=== PATIENT | male | born 1985 | race Caucasian/White ===

== ENCOUNTER 2017-01-23 07:10 | Outpatient (CLI) | payer MEDICAID ==
[2017-01-23 19:11] LABS: ALBUMIN/GLOBULIN RATIO 1.3 (1.0-2.2); BILIRUBIN,TOTAL 0.6 mg/dL (0.2-1.0); CALCIUM 9.3 mg/dL (8.5-10.3); CREATININE 1.1 mg/dL (0.6-1.2); POTASSIUM 3.7 mmol/L (3.5-5.0); TOTAL PROTEIN 8.1 g/dL (6.7-8.2)
[2017-01-23 19:36] LABS: BASOPHILS % (AUTO) 0.5 %; EOSINOPHILS # (AUTO) 0.3 10^3/uL (0.0-0.7); EOSINOPHILS % (AUTO) 3.7 %; HCT - HEMATOCRIT 45.7 % (42.0-52.0); HGB - HEMOGLOBIN 15.3 g/dL (14.0-18.0); LYMPHOCYTES # (AUTO) 2.5 10^3/uL (1.5-3.5); LYMPHOCYTES % (AUTO) 32.6 %; MEAN CORPUSCULAR HEMOGLOBIN 29.4 pg (27.0-31.0); MEAN CORPUSCULAR HGB CONC 33.4 g/dL (32.0-36.0); MEAN CORPUSCULAR VOLUME 87.9 fL (80.0-94.0); MEAN PLATELET VOLUME 9.4 fL (7.4-11.4); MONOCYTES # (AUTO) 0.5 10^3/uL (0.0-1.0); MONOCYTES % (AUTO) 6.4 %; NEUTROPHILS # (AUTO) 4.4 10^3/uL (1.5-6.6); NEUTROPHILS % (AUTO) 56.8 %; UNCORRECTED WHITE BLOOD COUNT 7.7 x10^3/uL; WHITE BLOOD COUNT 7.7 x10^3/uL (4.8-10.8)
[2017-01-23 19:44] LABS: THYROID STIMULATING HORMONE 2.04 uIU/mL (0.34-5.60)
== END 2017-01-23 07:11 | disposition home or self-care (01) ==
LOC: LAB.WCP 07:10
PROVIDERS: ATTEND Physician Assistant Medical
DX: F32.9 Major depressive disorder, single episode, unspecified (principal)
CPT/HCPCS: 36415; 80053; 81599; 82607; 84443; 85025

== ENCOUNTER 2018-07-05 07:38 | Emergency (ER) | payer MEDICAID ==
[2018-07-05 07:48] VITALS: BP 128/68
--- NOTE | 2018-07-05 08:12 | XRAY Report ---
Reason: Great toe pain and swelling Procedure Date: 07/05/2018 Accession Number: [id number] / [id number] Procedure: XR - Toe(s) RT CPT Code: FULL RESULT: EXAM: RIGHT FOOT RADIOGRAPHY EXAM DATE: 07/05/2018 08:01 AM. CLINICAL HISTORY: Great toe pain and swelling. No trauma. Possible gout. COMPARISON: None. TECHNIQUE: 3 nonweightbearing views. FINDINGS: Bones: Normal. No fractures or bone lesions. Joints: No subluxation or dislocation. There is minimal joint space narrowing and marginal osteophyte formation at the first metatarsophalangeal joint. Soft Tissues: There is mild soft tissue swelling of the great toe. No soft tissue calcification or gas. IMPRESSION: 1. No acute osseous abnormality. 2. 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 3. Mild soft tissue swelling of the great toe. No soft tissue calcification or gas. RADIA
[2018-07-05] MEDS ORDERED: oxyCODONE 5 MG TABLET PO STA ×2 (08:38→09:12)
[2018-07-05] MEDS ORDERED: INDOMETHACIN 25 MG CAPSULE PO STA (08:38)
--- NOTE | 2018-07-05 08:43 | ED Physician Documentation ---
History of Present Illness - Stated complaint Stated Complaint: R FOOT INJ - Chief complaint Chief Complaint: Ext Problem - Additonal information Additional information: hx from pt 32 male insidious onset R foot 1st MCP jt redness and severe pain no injury Review of Systems Constitutional: denies: Fever Musculoskeletal: reports: Joint pain, Pain with weight bearing PD PAST MEDICAL HISTORY - Past Medical History GI: Hemorrhoids - Past Surgical History Past Surgical History: Yes - Present Medications Home Medications: Ambulatory Orders Medication Instructions Recorded Confirmed Allopurinol 100 mg PO DAILY #14 tablet 07/05/18 Indomethacin [Indocin] 25 mg PO TIDWM PRN #30 capsule 07/05/18 oxyCODONE [Roxicodone] 5 mg PO Q6H PRN #8 tablet 07/05/18 - Allergies Allergies/Adverse Reactions: Allergies Allergy/AdvReac Type Severity Reaction Status Date / Time No Known Drug Allergies Allergy Verified 07/05/18 07:47 - Social History Does the pt smoke?: No Smoking Status: Former smoker Does the pt drink ETOH?: No Does the pt have substance abuse?: No - Immunizations Immunizations are current?: Yes PD ED PE NORMAL - Vitals Vital signs reviewed: Yes - Extremities Extremities: Other (foot: redness warmth swelling to 1st MCP jt, no streaking, no open wounds, no tinea, no knee pain, MSV intact) Results - Vitals Vitals: Vital Signs - 24 hr 07/05/18 07:44 Temperature 36.0 C L Heart Rate 99 Respiratory 16 Rate Blood Pressure 128/68 O2 Saturation 100 Oxygen O2 Source Room air - Labs Labs: Laboratory Tests 07/05/18 08:50 Uric Acid 8.1 H - Rads (name of study) toe Radiology: See rad report (STS degen OA no subcut gas etc) PD MEDICAL DECISION MAKING - ED course ED course: hx and exam most suggest gout no open wounds or streaking or fever to suggest infection no trauma Departure - Departure Clinical Impression: Gout Qualifiers: Gout site: toe Gout etiology: unspecified cause Chronicity: acute Laterality: right Qualified Code(s): M10.9 - Gout, unspecified Condition: Good Instructions: ED Arthritis Gout Prescriptions: Allopurinol 100 mg PO DAILY #14 tablet Indomethacin [Indocin] 25 mg PO TIDWM PRN #30 capsule PRN Reason: gout pain oxyCODONE [Roxicodone] 5 mg PO Q6H PRN #8 tablet PRN Reason: Severe Pain Comments: The redness and swelling to the base of the big toe is very suggestive of gout. There are no open wounds or streaks up your leg or fever to suggest an infection. Gout usually improves with a strong anti-inflammatory called indocin. I have also prescribed a stronger pain medication called oxycodone for you to take until the indocin works - oxycodone is a narcotic and can be addictive - please use as little as possible for as short a period of time as possible - also may cause drowsiness so no driving And also a medication called allopurinol to lower your uric acid levels - this is a medication you take snf - I just wrote for two weeks because you will need to follow up with your PMD to recheck labs and see if the dose needs to be adjusted Forms: Activity restrictions
== END 2018-07-05 09:42 | disposition home or self-care (01) ==
LOC: ED 07:38
DX: M10.9 Gout, unspecified (principal); Z87.891 Personal history of nicotine dependence
CPT/HCPCS: 36415; 73660; 84550; 99283; A9270

== ENCOUNTER 2018-12-07 11:45 | Emergency (ER) | payer MEDICAID ==
[2018-12-07 12:40] VITALS: BP 142/88
[2018-12-07] MEDS ORDERED: KETOROLAC 60 MG/2 ML VIAL IM STA (13:44)
[2018-12-07] MEDS ORDERED: DEXAMETHASONE 10 MG/ML VIAL PO STA (13:44)
[2018-12-07] MEDS ORDERED: CHERRY SYRUP 10 ML UDC PO ONE (13:44)
--- NOTE | 2018-12-07 13:49 | ED Physician Documentation ---
PD HPI BACK PAIN - Stated complaint Stated Complaint: BACK PX - Chief complaint Chief Complaint: Back Pain - History obtained from History obtained from: Patient - History of Present Illness Timing - onset: Yesterday Timing - duration: Days (1) Timing - details: Abrupt onset, Still present Location: Upper, Mid Quality: Pain, Spasm, Sharp Associated symptoms: No: Fever, Weakness, Numbness, Incontinent of urine, Unable to urinate, Hematuria, Incontinent of stool Improves with: Rest, Position Worsened by: Movement, Lifting, Twisting Contributing factors: Other (works for [employer]) Similar symptoms before: Has not had sx before Recently seen: Not recently seen - Additional information Additional information: 33-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 He has not had this happen to him previously. He does state that he has been working harder at work recently. He has worked for [employer] for the past 3-4 months. Review of Systems Constitutional: denies: Fever Eyes: denies: Decreased vision Ears: denies: Ear pain Nose: denies: Rhinorrhea / runny nose, Congestion Throat: denies: Sore throat Cardiac: denies: Chest pain / pressure Respiratory: denies: Dyspnea, Cough GI: denies: Abdominal Pain, Nausea, Vomiting : denies: Dysuria, Frequency Skin: denies: Rash Musculoskeletal: reports: Back pain. denies: Neck pain PD PAST MEDICAL HISTORY - Past Medical History GI: Hemorrhoids - Past Surgical History Past Surgical History: Yes - Present Medications Home Medications: Ambulatory Orders Medication Instructions Recorded Confirmed Allopurinol 100 mg PO DAILY #14 tablet 07/05/18 Indomethacin [Indocin] 25 mg PO TIDWM PRN #30 capsule 07/05/18 oxyCODONE [Roxicodone] 5 mg PO Q6H PRN #8 tablet 07/05/18 Cyclobenzaprine [Flexeril] 10 mg PO TID PRN #20 tablet 12/07/18 Hydrocodone/Acetaminophen 1 - 2 each PO Q6H PRN #14 tablet 12/07/18 [Hydrocodon-Acetaminophen 5-325] - Allergies Allergies/Adverse Reactions: Allergies Allergy/AdvReac Type Severity Reaction Status Date / Time No Known Drug Allergies Allergy Verified 07/05/18 07:47 - Social History Does the pt smoke?: No Smoking Status: Former smoker Does the pt drink ETOH?: No Does the pt have substance abuse?: No - Immunizations Immunizations are current?: Yes PD ED PE NORMAL - Vitals Vital signs reviewed: Yes (tachy nad hypertensive ) - General General: Alert and oriented X 3, Well developed/nourished - HEENT HEENT: Atraumatic, PERRL, EOMI, Other (dry mucous membranes) - Neck Neck: Supple, no meningeal sign, No bony TTP - Respiratory Respiratory: No respiratory distress - Back Back: No CVA TTP, No spinal TTP, Other (There is paraspinous muscle tenderness and tenseness at the level of the rhomboids bilaterally ) - Derm Derm: Normal color, Warm and dry - Extremities Extremities: No deformity, No edema - Neuro Neuro: Alert and oriented X 3, 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, No motor deficit, No sensory deficit, Normal speech Eye Opening: Spontaneous Motor: Obeys Commands Verbal: Oriented GCS Score: 15 - Psych Psych: Normal mood, Normal affect Results - Vitals Vitals: Vital Signs - 24 hr 12/07/18 12:37 Temperature 37.4 C Heart Rate 101 H Respiratory 18 Rate Blood Pressure 142/88 H O2 Saturation 100 Oxygen O2 Source Room air PD MEDICAL DECISION MAKING - ED course Complexity details: considered differential, d/w patient ED course: 33-year-old male with significant muscle spasm to the mid thoracic area consistent with the actions he makes pushing and pulling pallets. He is administered dexamethasone 10 mg orally and Toradol 6 mg IM [address] will place him on some hydrocodone and Flexeril and give him a note for work for 2 days. Departure - Departure Disposition: 01 Home, Self Care Clinical Impression: Spasm of thoracic back muscle Condition: Stable Instructions: ED Spasm Back No Trauma Follow-Up: Mildred Ortiz PA-C [Primary Care Provider] - Prescriptions: Cyclobenzaprine [Flexeril] 10 mg PO TID PRN #20 tablet PRN Reason: Spasms Hydrocodone/Acetaminophen [Hydrocodon-Acetaminophen 5-325] 1 - 2 each PO Q6H PRN #14 tablet PRN Reason: pain Forms: Activity restrictions
== END 2018-12-07 13:58 | disposition home or self-care (01) ==
LOC: ED 11:45
DX: M62.830 Muscle spasm of back (principal); M54.6 Pain in thoracic spine; X50.0XXA Overexertion from strenuous movement or load, initial encounter; Y93.89 Activity, other specified; Y92.512 Supermarket, store or market as the place of occurrence of the external cause; Y99.0 Civilian activity done for income or pay; Z87.891 Personal history of nicotine dependence
CPT/HCPCS: 96372; 99283; A9270

== ENCOUNTER 2019-03-06 05:07 | Emergency (ER) | payer MEDICAID ==
[2019-03-06 05:14] VITALS: BP 139/97
[2019-03-06] MEDS ORDERED: LIDOCAINE 1% 2 ML VIAL SUBQ STA (05:35)
--- NOTE | 2019-03-06 05:36 | ED Physician Documentation ---
PD HPI LOWER EXT INJURY - Stated complaint Stated Complaint: L CALF PAIN/WOUND - Chief complaint Chief Complaint: Wound - History obtained from History obtained from: Patient - History of Present Illness PD HPI LOW EXT INJURY LOCATION: Left, Lower leg Type of injury: Other ((?) spider bite) Timing - onset: How many days ago (2) Timing - duration: Days (2) Timing - details: Abrupt onset Improved by: Nothing Associated symptoms: Swelling, Discolored Similar symptoms before: Has not had sx before Recently seen: Not recently seen - Additional information Additional information: This is a 33-year-old man who presents with complaints with what he thought was a pimple on the back of his left leg. He noticed it because it was rubbing on his pants and whenever he would sit down so he squeezed it just a thin line of pus came out. He wondered if it might of been a spider bite. 2 days ago he squeezed it and now is hurting more. He actually had to leave work a little bit early because of the pain. He has not taken anything for the pain. No fever. He is never had anything like this previously. Review of Systems Constitutional: denies: Fever Skin: reports: Lesions (Pimple on the back of his left leg) Endocrine: reports: Other (He is not diabetic) PD PAST MEDICAL HISTORY - Past Medical History Past Medical History: Yes GI: Hemorrhoids - Past Surgical History Past Surgical History: Yes - Present Medications Home Medications: Ambulatory Orders Medication Instructions Recorded Confirmed Ibuprofen [Motrin] 800 mg PO Q8H PRN #30 tablet 03/06/19 Sulfamethox/Trimeth 800/160 1 each PO BID #20 tablet 03/06/19 [Bactrim Ds 800/160] - Allergies Allergies/Adverse Reactions: Allergies Allergy/AdvReac Type Severity Reaction Status Date / Time No Known Drug Allergies Allergy Verified 03/06/19 05:14 - Social History Does the pt smoke?: No Smoking Status: Never smoker Does the pt drink ETOH?: No Does the pt have substance abuse?: No - Immunizations Immunizations are current?: Yes - POLST Patient has POLST: No PD ED PE NORMAL - Vitals Vital signs reviewed: Yes - General General: Alert and oriented X 3, No acute distress, Well developed/nourished, Other (Very pleasant 33-year-old man is not in acute distress.) - HEENT HEENT: Atraumatic Results - Vitals Vitals: Vital Signs - 24 hr 03/06/19 05:10 Temperature 36.7 C Heart Rate 75 Respiratory 16 Rate Blood Pressure 139/97 H O2 Saturation 98 Oxygen O2 Source Room air Procedures - Abscess I&D (location) Lower extremity left Posterior Preparation: Chlorhexadine, Lidocaine 1% Incision: Incised with scalpel. No: Irrigated, Packed, Culture obtained Other: Pt tolerated well, Antibiotic prescribed PD MEDICAL DECISION MAKING - ED course Complexity details: d/w patient ED course: There was a tiny bead of pus that came out with the I&D. A lot of induration. No pain with passive stretching of the gastrocnemius muscle. Patient will be placed on Bactrim DS twice daily for 10 days. He is given Motrin prior to discharge and encouraged to use anti-inflammatories [id number]. He can wash the wound. He should recheck in 48 hours if it is not improving or sooner if it is rapidly worsening, he develops a fever or is vomiting. Departure - Departure Disposition: 01 Home, Self Care Clinical Impression: Cellulitis of leg, left, Abscess of leg, left Condition: Good Instructions: ED Infec Skin Cellulitis Follow-Up: Mildred Ortiz PA-C [Primary Care Provider] - Prescriptions: Ibuprofen [Motrin] 800 mg PO Q8H PRN #30 tablet PRN Reason: PAIN &/OR FEVER Sulfamethox/Trimeth 800/160 [Bactrim Ds 800/160] 1 each PO BID #20 tablet Comments: Keep the wound clean with soap and water. Cover it with a bandage. Take the Bactrim antibiotic twice a day. This can cause a little photosensitivity. Take the Motrin every 8 hours with food for the next 3 to 4 days to help with the inflammation. Return if this is not improving in 48 hours or if it is getting progressively worse, you have a fever or vomiting return sooner.
[2019-03-06] MEDS ORDERED: SULFAMETH/TRIMETH DS 800/160 MG TABLET PO STA (05:55)
[2019-03-06] MEDS ORDERED: IBUPROFEN 600 MG TABLET PO STA (05:55)
== END 2019-03-06 06:19 | disposition home or self-care (01) ==
LOC: ED 05:07
DX: L02.416 Cutaneous abscess of left lower limb (principal); L03.116 Cellulitis of left lower limb
CPT/HCPCS: 10060; 96372; 99283; A9270

== ENCOUNTER 2019-04-03 09:04 | Emergency (ER) | payer MEDICAID ==
--- NOTE | 2019-04-03 09:15 | ED Physician Documentation ---
History of Present Illness - Stated complaint Stated Complaint: RT SIDE PAIN - Chief complaint Chief Complaint: Abd Pain - History obtained from History obtained from: Patient - Additonal information Additional information: Patient is a previously healthy 33-year-old male presenting with right-sided abdominal pain over the past several days. Patient reports right upper quadrant discomfort that radiates towards the back. Patient's back pain is described as soreness. Patient also reports radiation of discomfort towards his right testicle. Patient denies other groin complaints. Patient states he has had difficulty with urination such as incomplete emptying and darkness, but no specific dysuria or hematuria. No significant changes in bowel movements. No nausea, vomiting, or fever. No other improving or worsening factors noted. Review of Systems Constitutional: denies: Fever GI: reports: Abdominal Pain. denies: Nausea, Vomiting, Diarrhea : reports: Unable to Void. denies: Dysuria Musculoskeletal: reports: Back pain PD PAST MEDICAL HISTORY - Past Medical History Past Medical History: No GI: Hemorrhoids - Past Surgical History Past Surgical History: Yes - Present Medications Home Medications: Ambulatory Orders Medication Instructions Recorded Confirmed Ibuprofen [Motrin] 800 mg PO Q8H PRN #30 tablet 03/06/19 Sulfamethox/Trimeth 800/160 1 each PO BID #20 tablet 03/06/19 [Bactrim Ds 800/160] Hydrocodone/Acetaminophen [[place] 1 each PO Q6HR #15 tablet 04/03/19 5-325 Tablet] Ondansetron Odt [Zofran] 4 mg TL Q6H PRN #10 tablet 04/03/19 Tamsulosin HCl [Flomax] 0.4 mg PO DAILY #12 capsule 04/03/19 - Allergies Allergies/Adverse Reactions: Allergies Allergy/AdvReac Type Severity Reaction Status Date / Time No Known Drug Allergies Allergy Verified 04/03/19 09:13 - Social History Does the pt smoke?: No Smoking Status: Never smoker Does the pt drink ETOH?: No Does the pt have substance abuse?: No - Immunizations Immunizations are current?: Yes - POLST Patient has POLST: No PD ED PE NORMAL - Vitals Vital signs reviewed: Yes - General General: Alert and oriented X 3, No acute distress, Well developed/nourished - HEENT HEENT: Atraumatic, Moist mucous membranes - Neck Neck: Supple, no meningeal sign - Cardiac Cardiac: RRR, No murmur - Respiratory Respiratory: No respiratory distress, Clear bilaterally - Abdomen Abdomen: Soft, Non distended. No: Non tender (Extremely mild right upper quadrant tenderness, negative Shultz sign, no rebound or guarding) - Back Back: No CVA TTP - Derm Derm: Normal color, Warm and dry, No rash - Extremities Extremities: No deformity, No tenderness to palpate - Neuro Neuro: Alert and oriented X 3, No motor deficit, No sensory deficit - Psych Psych: Normal mood, Normal affect Results - Vitals Vitals: Vital Signs - 24 hr 04/03/19 09:10 Temperature 37.7 C H Heart Rate 84 Respiratory 20 Rate Blood Pressure 146/93 H O2 Saturation 96 Oxygen O2 Source Room air - Labs Labs: Laboratory Tests 04/03/19 04/03/19 04/03/19 09:35 09:35 09:35 WBC 10.7 RBC 5.28 Hgb 15.0 Hct 44.9 MCV 85.0 MCH 28.4 MCHC 33.4 RDW 13.7 Plt Count 317 MPV 9.8 Neut # (Auto) 7.7 H Lymph # (Auto) 2.0 Edmunds # (Auto) 0.8 Eos # (Auto) 0.1 Baso # (Auto) 0.1 Absolute Nucleated RBC 0.00 Nucleated RBC % 0.0 Sodium 143 Potassium 4.0 Chloride 105 Carbon Dioxide 22 Anion Gap 16.0 H BUN 14 Creatinine 1.2 Estimated GFR (MDRD) 70 L Glucose 104 H Calcium 9.9 Total Bilirubin 0.7 AST 48 H ALT 75 H Alkaline Phosphatase 77 Total Protein 9.1 H Albumin 5.0 Globulin 4.1 Albumin/Globulin Ratio 1.2 Lipase 29 Urine Color YELLOW Urine Clarity CLEAR Urine pH 8.0 H Ur Specific Br[place] 1.010 Urine Protein NEGATIVE Urine Glucose (UA) NEGATIVE Urine Ketones NEGATIVE Urine Occult Blood TRACE-INTA Urine Nitrite NEGATIVE Urine Bilirubin NEGATIVE Urine Urobilinogen 0.2 (NORMAL) Ur Leukocyte Esterase NEGATIVE Ur Microscopic Review NOT INDICATED Urine Culture Comments NOT INDICATED PD MEDICAL DECISION MAKING - ED course Complexity details: reviewed results, re-evaluated patient, considered differential, d/w patient ED course: Most concerning for nephrolithiasis given patient's symptoms and physical exam. Also considering UTI and pyelonephritis. Have lower suspicion for other intra- abdominal pathology including gallbladder disease, pancreatitis, appendicitis, bowel obstruction, diverticulitis, AAA, as well as any pelvic pathology at this time, but considered. Patient received IV fluid, as well as Toradol which helped alleviate symptoms. Screening lab work returned relatively unremarkable. No signs of UTI on urinalysis. However, CT imaging did reveal nonobstructive 3 mm right-sided kidney stone. Advised patient of results and recommendations including use of medications for home, supportive cares, return precautions, and appropriate follow-up. Otherwise, feel that patient is safe to discharge home and passed a stone as an outpatient. Patient voiced understanding and is comfortable with discharge plan. Departure - Departure Disposition: , Self Care Clinical Impression: Kidney stone on right side Condition: Good Instructions: ED Stone Renal W Colic Follow-Up: Mildred Ortiz PA-C [Primary Care Provider] - Within 3 Days Prescriptions: Hydrocodone/Acetaminophen [[place] 5-325 Tablet] 1 each PO Q6HR #15 tablet Ondansetron Odt [Zofran] 4 mg TL Q6H PRN #10 tablet PRN Reason: Nausea / Vomiting Tamsulosin HCl [Flomax] 0.4 mg PO DAILY #12 capsule Comments: Please use [place] as prescribed for pain control, Zofran as prescribed for nausea control, and Flomax as prescribed to help pass stone. If using [place]iss[place] regularly, recommend use of stool softener or laxative to avoid constipation. If not requiring Florissant, may use ibuprofen or Tylenol. Follow-up with primary care physician in next 2 to 3 days and return to ED sooner if experience worsening symptoms or have other concerns.
[2019-04-03] MEDS ORDERED: KETOROLAC 30 MG/ML VIAL IVP STA (09:23)
[2019-04-03] MEDS ORDERED: SODIUM CHLORIDE 0.9% 1,000 ML IV ONE (09:23)
[2019-04-03 09:40] LABS: BASOPHILS # (AUTO) 0.1 10^3/uL (0.0-0.1); BASOPHILS % (AUTO) 0.6 %; EOSINOPHILS # (AUTO) 0.1 10^3/uL (0.0-0.7); EOSINOPHILS % (AUTO) 0.9 %; LYMPHOCYTES % (AUTO) 18.9 %; MEAN CORPUSCULAR HEMOGLOBIN 28.4 pg (27.0-31.0); MEAN CORPUSCULAR HGB CONC 33.4 g/dL (32.0-36.0); MEAN PLATELET VOLUME 9.8 fL (7.4-11.4); MONOCYTES # (AUTO) 0.8 10^3/uL (0.0-1.0); NEUTROPHILS # (AUTO) 7.7 10^3/uL (1.5-6.6); NEUTROPHILS % (AUTO) 72.2 %; PLT - PLATELET COUNT 317 10^3/uL (130-450); RED BLOOD COUNT 5.28 10^6/uL (4.70-6.10); RED CELL DISTRIBUTION WIDTH 13.7 % (12.0-15.0); WHITE BLOOD COUNT 10.7 x10^3/uL (4.8-10.8)
[2019-04-03 09:48] LABS: BILIRUBIN,URINE NEGATIVE (NEGATIVE); GLUCOSE, URINE (UA) NEGATIVE (NEGATIVE); KETONES,URINE (UA) NEGATIVE (NEGATIVE); LEUKOCYTE ESTERASE, URINE NEGATIVE (NEGATIVE); NITRITE,URINE NEGATIVE (NEGATIVE); OCCULT BLOOD,URINE TRACE-INTA (NEGATIVE); PROTEIN,URINE NEGATIVE (NEGATIVE); UROBILINOGEN,URINE 0.2 (NORMAL) E.U./dL (NORMAL)
[2019-04-03 09:50] LABS: CLARITY,URINE CLEAR (CLEAR)
[2019-04-03 09:57] LABS: ALBUMIN/GLOBULIN RATIO 1.2 (1.0-2.2); BILIRUBIN,TOTAL 0.7 mg/dL (0.2-1.0); CALCIUM 9.9 mg/dL (8.5-10.3); CREATININE 1.2 mg/dL (0.6-1.2); TOTAL PROTEIN 9.1 g/dL (6.7-8.2)
--- NOTE | 2019-04-03 10:10 | CT Report ---
Reason: Right flank pain, concerning for stone Procedure Date: 04/03/2019 Accession Number: [id number] / [id number] Procedure: CT - Abdomen/Pelvis WO CPT Code: FULL RESULT: EXAM: CT ABDOMEN AND PELVIS (CT KUB) EXAM DATE: 04/03/2019 09:48 AM. CLINICAL HISTORY: Right flank pain, concerning for stone. COMPARISONS: None. TECHNIQUE: Routine axial helical CT imaging was performed through the abdomen and pelvis without IV contrast. Reconstructions: Coronal and sagittal. In accordance with CT protocol optimization, one or more of the following dose reduction techniques were utilized for this exam: automated exposure control, adjustment of mA and/or KV based on patient size, or use of iterative reconstructive technique. FINDINGS: Lung Bases: Unremarkable. Right Kidney/Ureter: There is moderate right hydronephrosis, mild hydroureter, and mild perinephric fat stranding. There is a 3 mm stone at the right ureterovesical junction (series 3 image 87). Left Kidney/Ureter: No stones, hydronephrosis, or hydroureter. No perinephric fat stranding. Other Solid Organs: Noncontrast images of the solid organs are grossly unremarkable. Gallbladder/Bile Ducts: Unremarkable. Peritoneal Cavity: No free fluid, free air or ginna adenopathy. Bowel is grossly unremarkable. The appendix is well-visualized and normal. Pelvic Organs: As noted above, there is a 3 mm stone at the right ureterovesical junction. The bladder is decompressed. No definite bladder wall thickening or adjacent fat stranding. Noncontrast images of the visualized pelvic organs are unremarkable. Vasculature: Unremarkable. Other: None. IMPRESSION: 1. There is moderate right hydronephrosis, mild hydroureter, and mild perinephric fat stranding. There is a 3 mm stone at the right ureterovesical junction. 2. No left urinary tract stones or obstruction. 3. Otherwise unremarkable noncontrast CT of the abdomen and pelvis. The appendix is normal. RADIA
[2019-04-03 10:54] VITALS: BP 139/84
== END 2019-04-03 10:55 | disposition home or self-care (01) ==
LOC: ED 09:04
DX: N13.2 Hydronephrosis with renal and ureteral calculous obstruction (principal)
CPT/HCPCS: 36415; 74176; 80053; 81001; 81003; 83690; 85025; 87086; 96361; 96374; 99284

== ENCOUNTER 2020-01-11 21:09 | Emergency (ER) | payer MEDICAID ==
[2020-01-11 21:22] VITALS: BP 160/85
[2020-01-11] MEDS ORDERED: TETANUS/DIPHTHERIA/PERTUSSIS 0.5 ML SYRINGE IM ONE (21:29)
--- NOTE | 2020-01-11 21:32 | ED Physician Documentation ---
PD HPI WOUND RECHECK - Stated complaint Stated Complaint: Burn, wound - Chief complaint Chief Complaint: Wound - Histroy obtained from History obtained from: Patient (34-year-old gentleman has a pustule on the right lower quadrant abdominal wall. Also has a burn on the tips of the first and second right fingers from working at home today. Tetanus is unknown.) Review of Systems Constitutional: reports: Reviewed and negative Throat: reports: Reviewed and negative PD PAST MEDICAL HISTORY - Past Medical History GI: Hemorrhoids Psych: Anxiety - Past Surgical History Past Surgical History: Yes - Present Medications Home Medications: Ambulatory Orders Medication Instructions Recorded Confirmed Ibuprofen [Motrin] 800 mg PO Q8H PRN #30 tablet 03/06/19 Sulfamethox/Trimeth 800/160 1 each PO BID #20 tablet 03/06/19 [Bactrim Ds 800/160] Hydrocodone/Acetaminophen [[place] 1 each PO Q6HR #15 tablet 04/03/19 5-325 Tablet] Ondansetron Odt [Zofran] 4 mg TL Q6H PRN #10 tablet 04/03/19 Tamsulosin HCl [Flomax] 0.4 mg PO DAILY #12 capsule 04/03/19 Mupirocin 1 gm TP TID #2 [email or web address] 01/11/20 - Allergies Allergies/Adverse Reactions: Allergies Allergy/AdvReac Type Severity Reaction Status Date / Time No Known Drug Allergies Allergy Verified 01/11/20 21:18 - Social History Does the pt smoke?: No Smoking Status: Never smoker Does the pt drink ETOH?: No Does the pt have substance abuse?: No - Immunizations Immunizations are current?: Yes - POLST Patient has POLST: No PD ED PE NORMAL - Vitals Vital signs reviewed: Yes - General General: Alert and oriented X 3, No acute distress - Derm Derm: Other (There is a small pustule in the right lower quadrant abdominal wall) - Extremities Extremities: Other (Two 1 cm rey on the tips of the first and second fingers of the right hand. He also has extensive old scarring on the index finger of the right hand from a prior burn.) - Neuro Neuro: Alert and oriented X 3, Normal speech Results - Vitals Vitals: Vital Signs - 24 hr 01/11/20 21:18 Temperature 37.2 C Heart Rate 117 H Respiratory 14 Rate Blood Pressure 160/85 H O2 Saturation 93 Oxygen O2 Source Room air Procedures - Abscess I&D (location) Right lower quadrant abdominal wall Preparation: Alcohol Incision: Needle aspiration, Purulent drainage, Culture obtained Other: Pt tolerated well, Dressing applied Departure - Departure Disposition: 01 Home, Self Care Clinical Impression: Skin pustule Burn of finger Qualifiers: Encounter type: initial encounter Laterality: right Burn degree: partial thickness (2nd degree) Qualified Code(s): T23.221A - Burn of second degree of single right finger (nail) except thumb, initial encounter Condition: Good Record reviewed to determine appropriate education?: Yes Instructions: ED Burn D 2nd Prescriptions: Mupirocin 1 gm TP TID #2 [email or web address] Comments: For the rey you can just keep them covered with a Band-Aid. Return if the redness around the pustule gets worse. We are performing a wound culture, the results should be done in 48-72 hours. If antibiotic change is necessary we will call you. Return if worse in the meantime, especially if you develop increased pain, fevers, cannot keep down the medication. Otherwise follow-up with your physician in approximately 2-3 days.
== END 2020-01-11 21:40 | disposition home or self-care (01) ==
LOC: ED 21:09
DX: L08.9 Local infection of the skin and subcutaneous tissue, unspecified (principal); T23.221A Burn of second degree of single right finger (nail) except thumb, initial encounter; T23.011A Burn of unspecified degree of right thumb (nail), initial encounter; X58.XXXA Exposure to other specified factors, initial encounter; Y92.009 Unspecified place in unspecified non-institutional (private) residence as the place of occurrence of the external cause; Z23 Encounter for immunization
CPT/HCPCS: 10060; 10160; 87070; 87205; 90471

== ENCOUNTER 2020-04-07 22:11 | Outpatient (CLI) | payer MEDICAID | END 2020-04-07 22:12 | disposition EMS.NT | LOC: EMS 22:11 | PROVIDERS: ATTEND Surgery | DX: R44.3 Hallucinations, unspecified (principal) ==

== ENCOUNTER 2020-08-03 10:54 | Emergency (ER) | payer MEDICAID ==
[2020-08-03 11:14] VITALS: BP 118/67
== END 2020-08-03 12:04 | disposition left against medical advice (07) ==
LOC: ED 10:54
DX: Z53.21 Procedure and treatment not carried out due to patient leaving prior to being seen by health care provider (principal)

== ENCOUNTER 2020-11-19 08:01 | Outpatient (CLI) | payer MEDICAID | END 2020-11-19 08:02 | disposition EMS.NT | LOC: EMS 08:01 | DX: R41.82 Altered mental status, unspecified (principal) ==

== ENCOUNTER 2020-11-29 13:44 | Emergency (ER) | payer MEDICAID ==
--- NOTE | 2020-11-29 14:18 | ED Physician Documentation ---
History of Present Illness - Stated complaint Stated Complaint: MHE - Chief complaint Chief Complaint: MHE - Additonal information Additional information: 35-year-old male brought into the emergency department by Della Haro with an AMNA hold. He had been found wandering around a neighborhood hallucinating looking for Doyle Lay and Bess Leyva. He also was attempting to kick in the door of a home where a 13-year-old boy resided. Patient states to this provider that he was only looking for homes and did not know the correct address of where his friends were at. He states that he takes Prozac 3 times a day. He would like a refill of this but does not feel that he is at risk to harm himself or anyone else. He repeatedly declines our testing or evaluation and has attempted to leave the emergency department. I did discuss with him that because this is a involuntary lawn for cement hold that he is not able to leave the emergency department. Review of Systems Constitutional: denies: Fever, Chills Eyes: reports: Reviewed and negative Ears: reports: Reviewed and negative Nose: reports: Reviewed and negative Throat: reports: Reviewed and negative Cardiac: reports: Reviewed and negative Respiratory: reports: Reviewed and negative GI: reports: Reviewed and negative : reports: Reviewed and negative Skin: reports: Reviewed and negative Musculoskeletal: reports: Reviewed and negative Neurologic: reports: Reviewed and negative Psychiatric: reports: Hallucinations, Delusions Endocrine: reports: Reviewed and negative Immunocompromised: reports: Reviewed and negative PD PAST MEDICAL HISTORY - Past Medical History Cardiovascular: None Respiratory: None Neuro: None Endocrine/Autoimmune: None GI: Hemorrhoids : None HEENT: None Psych: Anxiety Musculoskeletal: None Derm: None - Past Surgical History Past Surgical History: Yes - Present Medications Home Medications: Ambulatory Orders Medication Instructions Recorded Confirmed No Known Home Medications 11/29/20 11/29/20 - Allergies Allergies/Adverse Reactions: Allergies Allergy/AdvReac Type Severity Reaction Status Date / Time No Known Drug Allergies Allergy Verified 11/29/20 13:45 - Social History Does the pt smoke?: No Smoking Status: Never smoker Does the pt drink ETOH?: No Does the pt have substance abuse?: No - Immunizations Immunizations are current?: Yes - POLST Patient has POLST: No PD ED PE EXPANDED - General General: Alert, No acute distress, Well developed/nourished - Cardiac Cardiac: Radial strong equal, Pedal strong equal, Cap refill < 2 sec. No: Murmur Present - Respiratory Respiratory: Clear to ausultation elvia. No: Distress, Labored - Abdomen Abdomen: Normal Bowel sounds. No: Tender to palpation - Derm Derm: Normal color, Warm and dry. No: Rash - GCS Eye Opening: Spontaneous Motor: Obeys Commands Verbal: Oriented Total: 15 - Psych Psych: Pressured speech, Flight of ideas. No: Suicidal, Homicidal Results - Vitals Vitals: Vital Signs - 24 hr 11/29/20 11/29/20 11/29/20 13:46 14:24 14:36 Temperature 37.1 C Heart Rate 112 H 70 79 Respiratory 18 16 15 Rate Blood Pressure 130/97 H 110/60 123/66 O2 Saturation 100 98 97 11/29/20 11/29/20 11/29/20 14:39 15:09 15:39 Temperature Heart Rate 78 77 72 Respiratory 17 15 17 Rate Blood Pressure 115/67 112/66 128/84 H O2 Saturation 97 96 96 11/29/20 11/29/20 11/29/20 16:09 18:12 20:29 Temperature 37.1 C Heart Rate 73 69 61 Respiratory 18 11 L 14 Rate Blood Pressure 119/73 110/56 L 101/60 O2 Saturation 94 96 98 Oxygen O2 Source Room air - Labs Labs: Laboratory Tests 11/29/20 11/29/20 11/29/20 14:20 14:20 14:20 WBC 6.4 RBC 5.33 Hgb 15.9 Hct 48.9 MCV 91.7 MCH 29.8 MCHC 32.5 RDW 12.6 Plt Count 314 MPV 9.8 Neut # (Auto) 3.6 Lymph # (Auto) 1.8 Hand # (Auto) 0.5 Eos # (Auto) 0.4 Baso # (Auto) 0.1 Absolute Nucleated RBC 0.00 Nucleated RBC % 0.0 Sodium 140 Potassium 4.2 Chloride 105 Carbon Dioxide 27 Anion Gap 8.0 BUN 13 Creatinine 1.0 Estimated GFR (MDRD) 86 L Glucose 96 Calcium 9.9 Total Bilirubin 0.8 AST 32 ALT 32 Alkaline Phosphatase 95 Total Protein 8.3 H Albumin 4.7 Globulin 3.6 Albumin/Globulin Ratio 1.3 Lipase 22 TSH 0.51 Urine Color Urine Clarity Urine pH Ur Specific [place] Urine Protein Urine Glucose (UA) Urine Ketones Urine Occult Blood Urine Nitrite Urine Bilirubin Urine Urobilinogen Ur Leukocyte Esterase Ur Microscopic Review Urine Culture Comments Nasal Adenovirus (PCR) Nasal B. parapertussis DNA (PCR) Nasal Coronavir 229E PCR Nasal Coronavir HKU1 PCR Nasal Coronavir NL63 PCR Nasal Coronavir OC43 PCR Nasal Enterovir/Rhinovir PCR Nasal Influenza B PCR Nasal Influenza A PCR Nasal Parainfluen 1 PCR Nasal Parainfluen 2 PCR Nasal Parainfluen 3 PCR Nasal Parainfluen 4 PCR Nasal RSV (PCR) Nasal B.pertussis DNA PCR Nasal C.pneumoniae (PCR) Geoffrey Human Metapneumo PCR Nasal M.pneumoniae (PCR) Nasal SARS-CoV-2 (PCR) Salicylates < 6.0 Urine Opiates Screen Ur Oxycodone Screen Urine Methadone Screen Ur Propoxyphene Screen Acetaminophen < 10 L Ur Barbiturates Screen Ur Tricyclics Screen Ur Phencyclidine Scrn Ur Amphetamine Screen U Methamphetamines Scrn U Benzodiazepines Scrn Urine Cocaine Screen U Cannabinoids Screen Ethyl Alcohol < 5.0 11/29/20 11/29/20 14:52 18:35 WBC RBC Hgb Hct MCV MCH MCHC RDW Plt Count MPV Neut # (Auto) Lymph # (Auto) Hand # (Auto) Eos # (Auto) Baso # (Auto) Absolute Nucleated RBC Nucleated RBC % Sodium Potassium Chloride Carbon Dioxide Anion Gap BUN Creatinine Estimated GFR (MDRD) Glucose Calcium Total Bilirubin AST ALT Alkaline Phosphatase Total Protein Albumin Globulin Albumin/Globulin Ratio Lipase TSH Urine Color DARK YELLOW Urine Clarity CLEAR Urine pH 7.5 Ur Specific [place] 1.020 Urine Protein NEGATIVE Urine Glucose (UA) NEGATIVE Urine Ketones TRACE Urine Occult Blood TRACE-INTA Urine Nitrite NEGATIVE Urine Bilirubin NEGATIVE Urine Urobilinogen 0.2 (NORMAL) Ur Leukocyte Esterase NEGATIVE Ur Microscopic Review NOT INDICATED Urine Culture Comments NOT INDICATED Nasal Adenovirus (PCR) NOT DETECTED Nasal B. parapertussis DNA (PCR) NOT DETECTED Nasal Coronavir 229E PCR NOT DETECTED Nasal Coronavir HKU1 PCR NOT DETECTED Nasal Coronavir NL63 PCR NOT DETECTED Nasal Coronavir OC43 PCR NOT DETECTED Nasal Enterovir/Rhinovir PCR NOT DETECTED Nasal Influenza B PCR NOT DETECTED Nasal Influenza A PCR NOT DETECTED Nasal Parainfluen 1 PCR NOT DETECTED Nasal Parainfluen 2 PCR NOT DETECTED Nasal Parainfluen 3 PCR NOT DETECTED Nasal Parainfluen 4 PCR NOT DETECTED Nasal RSV (PCR) NOT DETECTED Nasal B.pertussis DNA PCR NOT DETECTED Nasal C.pneumoniae (PCR) NOT DETECTED Geoffrey Human Metapneumo PCR NOT DETECTED Nasal M.pneumoniae (PCR) NOT DETECTED Nasal SARS-CoV-2 (PCR) NOT DETECTED Salicylates Urine Opiates Screen POSITIVE H Ur Oxycodone Screen NEGATIVE Urine Methadone Screen NEGATIVE Ur Propoxyphene Screen NEGATIVE Acetaminophen Ur Barbiturates Screen NEGATIVE Ur Tricyclics Screen NEGATIVE Ur Phencyclidine Scrn NEGATIVE Ur Amphetamine Screen POSITIVE H U Methamphetamines Scrn POSITIVE H U Benzodiazepines Scrn NEGATIVE Urine Cocaine Screen NEGATIVE U Cannabinoids Screen NEGATIVE Ethyl Alcohol PD MEDICAL DECISION MAKING - ED course Complexity details: reviewed results, re-evaluated patient, considered differential ED course: 35-year-old male is brought to the emergency department with [facility] office under an AMNA as he was found trying to enter an unknown residence reportedly looking for Bess Leyva and/or Doyle soliman. The patient is simply requesting a refill of his Prozac but law unfortunate had concerns that he may be a danger to others if released. Unfortunately shortly after arrival to the emergency department patient's behavior escalated and he was aggressive and combative with law enforcement officers and could not be verbally deescalated. Therefore at about 1430 both physical and chemical restraints were initiated. He was given 10 mg of Zyprexa intramuscularly with good results. 1824: Pt remained combative intermittently, physical restraints reordered 2044: Pt is now free of physical restraints. he is alert, sitting up and cooperative with staff. Awaiting DCR 2114: Patient has spoken with DCR. I have in turn also spoken with Evelina the DCR. At this patient time patient is being detained involuntarily for his own safety and risk to others. However patient is adamant that he can refuse treatment and is refusing to return to his bed. We spent a fair amount of time in the hallway trying to reason with patient without escalating his anger. We also called [facility] office to ask for their assistance as patient required a lot of physical restraint earlier. However [facility]. In anticipation that he will be re-detained by them I have prescribed 5 mg of Haldol and 2 mg of Ativan for physical restraints upon his return. 2209: [facility] in [facility] department. She reports to the staff that the patient has "received a ride home." She reports that though he came in as an AMNA and was being involuntarily detained by DCR she is not going to proceed to look for him or go to his home to bring him back. DCR was made aware of this. Departure - Departure Disposition: ED Elope Clinical Impression: Methamphetamine abuse, Drug psychosis, with delusions Condition: Serious Face to Face for Restraints - Immediate Situation Face to Face Evaluation Date: 11/29/20 Face to Face Evaluation Time: 14:25 Restraint Situation: Locking Patient's Reactions to the Intervention: Physically safe, Fighting restraints, Swearing, Screaming/Yelling - Behavioral Condition Attitude: Guarded Behavior: Uncooperative Orientation: Person, Place, Time Mood: Labile, Angry - Evaluation Review of Systems: AMNA by OCSO for agressive behaviors and attempting ot find Bess Polanco and Doyle soliman. ROS otherwise non contributary Pertinent History/Illicit Drugs/Medications/Results: 35-year-old male brought in by [facility] office on an AMNA for aggressive behavior towards others attempting to find his friends Besstal Leyva and Doyle soliman. He was also found attempting to break and enter into a private residence where a 13-year-old boy was home alone. Initially patient was calm and cooperative but shortly thereafter attempted to flee the emergency department and tests old with [facility] officers in the hallway therefore Zyprexa was ordered to help calm the patient and physical locking restraints were ordered. - Plan Need to Continue or Terminate Violent or Chemical Restraint: eascalated quickly, often not able to be reasoned with. Reinitiated at 1825
[2020-11-29] MEDS ORDERED: OLANZapine 10 MG VIAL IM STA ×3 (14:24→17:21)
[2020-11-29 14:28] LABS: BASOPHILS # (AUTO) 0.1 10^3/uL (0.0-0.1); BASOPHILS % (AUTO) 0.9 %; EOSINOPHILS # (AUTO) 0.4 10^3/uL (0.0-0.7); EOSINOPHILS % (AUTO) 5.8 %; HCT - HEMATOCRIT 48.9 % (42.0-52.0); HGB - HEMOGLOBIN 15.9 g/dL (14.0-18.0); LYMPHOCYTES # (AUTO) 1.8 10^3/uL (1.5-3.5); LYMPHOCYTES % (AUTO) 28.8 %; MEAN CORPUSCULAR HEMOGLOBIN 29.8 pg (27.0-31.0); MEAN CORPUSCULAR HGB CONC 32.5 g/dL (32.0-36.0); MEAN CORPUSCULAR VOLUME 91.7 fL (80.0-94.0); MEAN PLATELET VOLUME 9.8 fL (7.4-11.4); MONOCYTES # (AUTO) 0.5 10^3/uL (0.0-1.0); MONOCYTES % (AUTO) 7.5 %; NEUTROPHILS # (AUTO) 3.6 10^3/uL (1.5-6.6); NEUTROPHILS % (AUTO) 56.8 %; PLT - PLATELET COUNT 314 10^3/uL (130-450); RED BLOOD COUNT 5.33 10^6/uL (4.70-6.10); RED CELL DISTRIBUTION WIDTH 12.6 % (12.0-15.0); WHITE BLOOD COUNT 6.4 x10^3/uL (4.8-10.8)
[2020-11-29 14:44] LABS: ACETAMINOPHEN < 10 ug/mL (10-30); ALBUMIN 4.7 g/dL (3.2-5.5); ALBUMIN/GLOBULIN RATIO 1.3 (1.0-2.2); ALKALINE PHOSPHATASE 95 IU/L (42-121); ALT ALANINE AMINOTRANSFERASE 32 IU/L (10-60); AST ASPARTATE AMINOTRANSFERASE 32 IU/L (10-42); BILIRUBIN,TOTAL 0.8 mg/dL (0.2-1.0); BUN - BLOOD UREA NITROGEN 13 mg/dL (6-20); CALCIUM 9.9 mg/dL (8.5-10.3); CARBON DIOXIDE - CO2 27 mmol/L (21-32); CHLORIDE 105 mmol/L (101-111); ETOH - ETHANOL < 5.0 mg/dL; GFR - MDRD 86 (>89); GLUCOSE 96 mg/dL (70-100); LIPASE 22 U/L (22-51); POTASSIUM 4.2 mmol/L (3.5-5.0); SALICYLATE < 6.0 mg/dL; SODIUM 140 mmol/L (135-145); TOTAL PROTEIN 8.3 g/dL (6.7-8.2)
[2020-11-29 15:57] LABS: B. PARAPERTUSSIS- RESP PCR PAN NOT DETECTED; B. PERTUSSIS- RESP PCR PANEL NOT DETECTED; C. PNEUMONIAE- RESP PCR PANEL NOT DETECTED; CORONAVIRUS 229E-RESP PCR NOT DETECTED; CORONAVIRUS HKU1-RESP PCR NOT DETECTED; CORONAVIRUS NL63-RESP PCR NOT DETECTED; CORONAVIRUS OC43-RESP PCR NOT DETECTED; HUMAN METAPNEUMOVIRUS NOT DETECTED; INFLUENZA A- RESP PCR PANEL NOT DETECTED; INFLUENZA B - RESP PCR PANEL NOT DETECTED; M. PNEUMONIAE- RESP PCR PANEL NOT DETECTED; PARAINFLUENZA VIRUS 1 NOT DETECTED; PARAINFLUENZA VIRUS 2 NOT DETECTED; PARAINFLUENZA VIRUS 3 NOT DETECTED; PARAINFLUENZA VIRUS 4 NOT DETECTED; RHINOVIRUS/ENTEROVIRUS NOT DETECTED; RSV- RESP PCR PANEL NOT DETECTED; SARS-CoV-2 -RESP PCR PANEL NOT DETECTED
[2020-11-29 18:46] LABS: MUDS CUTOFF CONCENTRATIONS CUTOFF CONC BELOW:
[2020-11-29 18:47] LABS: BILIRUBIN,URINE NEGATIVE (NEGATIVE); GLUCOSE, URINE (UA) NEGATIVE (NEGATIVE); KETONES,URINE (UA) TRACE mg/dL (NEGATIVE); LEUKOCYTE ESTERASE, URINE NEGATIVE (NEGATIVE); NITRITE,URINE NEGATIVE (NEGATIVE); OCCULT BLOOD,URINE TRACE-INTA (NEGATIVE); PH,URINE 7.5 PH (5.0-7.5); PROTEIN,URINE NEGATIVE (NEGATIVE); UROBILINOGEN,URINE 0.2 (NORMAL) E.U./dL (NORMAL)
[2020-11-29 18:58] LABS: CLARITY,URINE CLEAR (CLEAR)
[2020-11-29 19:18] LABS: AMPHETAMINE SCREEN,URINE POSITIVE (NEGATIVE); BARBITURATE SCREEN,UR NEGATIVE (NEGATIVE); BENZODIAZEPINES SCREEN, URINE NEGATIVE (NEGATIVE); COCAINE SCREEN URINE NEGATIVE (NEGATIVE); METHADONE SCREEN, URINE NEGATIVE (NEGATIVE); METHAMPHETAMINES SCREEN, URINE POSITIVE (NEGATIVE); OPIATE SCREEN, URINE POSITIVE (NEGATIVE); OXYCODONE SCREEN, URINE NEGATIVE (NEGATIVE); PROPOXYPHENE SCREEN, URINE NEGATIVE (NEGATIVE); THC CANNABINOID SCREEN, URINE NEGATIVE (NEGATIVE); TRICYCLIC ANTIDEPRESSANT,URINE NEGATIVE (NEGATIVE)
[2020-11-29 20:29] VITALS: BP 101/60
[2020-11-29] MEDS ORDERED: HALOPERIDOL 5 MG/ML VIAL IM STA (21:24)
[2020-11-29] MEDS ORDERED: LORazepam 2 MG/ML VIAL IM STA (21:25)
--- NOTE | 2020-11-29 21:32 | ED Physician Documentation ---
ED Addendum - Addendum Addendum: 11/29/20 21:30 Patient eloped just now. Attempted to redirect and offer antianxiety and/or sedating medications however he refused. Patient has limited insight to the fact that he was brought here involuntarily, evaluated by DCR and that involuntary hospitalization was recommended since he is a danger to others. States he is going home. Police have been contacted.
--- OUTSIDE RECORDS SUMMARY | 2020-11-30 03:24 | EXTERNAL MEDICAL SUMMARY RPT | Continuity of Care Document ---
:1985 Demographics Phone Unavailable Preferred Language Unknown Marital Status Unknown Bahai Affiliation Unknown Race Unknown Ethnic Group Unknown Author Organization [facility] Address [address] [place] [address] Phone Social History date description facility [phone]
--- OUTSIDE RECORDS SUMMARY | 2020-11-30 03:24 | EXTERNAL MEDICAL SUMMARY RPT | Continuity of Care Document ---
:1985 Demographics Phone Unavailable Preferred Language Unknown Marital Status Unknown Yazdanism Affiliation Unknown Race Unknown Ethnic Group Unknown Author Organization [facility] Address [address] [place] [address] Phone Social History date description facility [phone]
== END 2020-11-29 22:23 | disposition left against medical advice (07) ==
LOC: ED 13:44
DX: F15.151 Other stimulant abuse with stimulant-induced psychotic disorder with hallucinations (principal); F22 Delusional disorders; Z78.1 Physical restraint status; Z20.822 Contact with and (suspected) exposure to COVID-19; Z53.29 Procedure and treatment not carried out because of patient's decision for other reasons
CPT/HCPCS: 0202U; 36415; 51701; 80053; 80306; 80307; 80320; 80329; 81003; 83690; 84443; 85025; 99283; 99285; 81001; 87086

== ENCOUNTER 2020-11-30 13:17 | Emergency (ER) | payer MEDICAID ==
--- OUTSIDE RECORDS SUMMARY | 2020-11-30 13:21 | EXTERNAL MEDICAL SUMMARY RPT | Continuity of Care Document ---
:1985 Demographics Phone Unavailable Preferred Language Unknown Marital Status Unknown Mormon Affiliation Unknown Race Unknown Ethnic Group Unknown Author Organization [facility] Address [address] [place] [address] Phone Social History date description facility [phone]
--- OUTSIDE RECORDS SUMMARY | 2020-11-30 13:30 | EXTERNAL MEDICAL SUMMARY RPT | Continuity of Care Document ---
:1985 Demographics Phone Unavailable Preferred Language Unknown Marital Status Unknown Anabaptism Affiliation Unknown Race Unknown Ethnic Group Unknown Author Organization [facility] Address [address] [place] [address] Phone Social History date description facility [phone]
[2020-11-30 13:33] VITALS: BP 150/89
[2020-11-30 13:37] LABS: MUDS CUTOFF CONCENTRATIONS CUTOFF CONC BELOW:
--- NOTE | 2020-11-30 13:38 | ED Physician Documentation ---
History of Present Illness - Stated complaint Stated Complaint: MHE - Chief complaint Chief Complaint: MHE - Additonal information Additional information: 35-year-old male returns to the emergency department with [facility] for mental health evaluation. This patient was seen by myself yesterday in the emergency department when he was presented for an AMNA. He had been at some residences near his home attempting to kick in the door of the home where a 13-year-old boy was. Patient reported to me that there was a misunderstanding and that he was simply looking for friends but did not know their address. He did report to me that the friends were Bess Leyva and Doyle janny. Screening labs yesterday revealed that the patient was positive for methamphetamine. He was ultimately seen and evaluated by DCR and placed on an involuntary hold. During his time in the ER yesterday he did require both chemical and physical restraints for combative and aggressive behaviors. Unfortunately once the patient's restraints had been removed shortly after DCR evaluation the patient eloped from the emergency department. [facility] office was notified of the event and this morning they returned to his home to bring him into the emergency department. The officer in attendance today reports to me that the patient's father reported that the patient was beginning to verbally escalate and become aggressive at home. Review of Systems Unable to obtain: Uncooperative PD PAST MEDICAL HISTORY - Past Medical History Cardiovascular: None Respiratory: None Neuro: None Endocrine/Autoimmune: None GI: Hemorrhoids : None HEENT: None Psych: Anxiety Musculoskeletal: None Derm: None - Past Surgical History Past Surgical History: Yes - Present Medications Home Medications: Ambulatory Orders Medication Instructions Recorded Confirmed No Known Home Medications 11/29/20 11/29/20 - Allergies Allergies/Adverse Reactions: Allergies Allergy/AdvReac Type Severity Reaction Status Date / Time No Known Drug Allergies Allergy Verified 11/30/20 13:26 - Social History Does the pt smoke?: No Smoking Status: Never smoker Does the pt drink ETOH?: No Does the pt have substance abuse?: No - Immunizations Immunizations are current?: Yes - POLST Patient has POLST: No PD ED PE EXPANDED - General General: Alert, No acute distress - Cardiac Cardiac: Regular Rate, Radial strong equal, Pedal strong equal, Cap refill < 2 sec - Respiratory Respiratory: Clear to ausultation elvia. No: Distress, Labored - Abdomen Abdomen: Normal Bowel sounds - GCS Eye Opening: Spontaneous Motor: Obeys Commands Verbal: Oriented Total: 15 - Psych Psych: Flight of ideas (Patient fixated that he has the right to refuse involuntary care. Patient is calm and cooperative at this time but quickly escalates when he feels his freedom is threatened) Results - Vitals Vitals: Vital Signs - 24 hr 11/30/20 11/30/20 13:26 13:36 Temperature 37.2 C 37.2 C Heart Rate 90 90 Respiratory 18 18 Rate Blood Pressure 150/89 H 150/89 H O2 Saturation 100 100 Oxygen O2 Source Room air - Labs Labs: Laboratory Tests 11/30/20 11/30/20 11/30/20 13:33 13:35 13:35 WBC 8.9 RBC 5.35 Hgb 16.1 Hct 49.4 MCV 92.3 MCH 30.1 MCHC 32.6 RDW 12.5 Plt Count 331 MPV 9.9 Neut # (Auto) 5.2 Lymph # (Auto) 2.6 Bennett # (Auto) 0.5 Eos # (Auto) 0.6 Baso # (Auto) 0.1 Absolute Nucleated RBC 0.00 Nucleated RBC % 0.0 Sodium 140 Potassium 3.6 Chloride 102 Carbon Dioxide 28 Anion Gap 10.0 BUN 13 Creatinine 1.3 H Estimated GFR (MDRD) 63 L Glucose 88 Calcium 9.1 Total Bilirubin 0.8 AST 35 ALT 29 Alkaline Phosphatase 96 Total Protein 8.6 H Albumin 4.7 Globulin 3.9 Albumin/Globulin Ratio 1.2 Lipase 25 TSH Urine Color STRAW Urine Clarity HAZY Urine pH 7.0 Ur Specific [place] <=1.005 Urine Protein NEGATIVE Urine Glucose (UA) NEGATIVE Urine Ketones NEGATIVE Urine Occult Blood MODERATE H Urine Nitrite NEGATIVE Urine Bilirubin NEGATIVE Urine Urobilinogen 0.2 (NORMAL) Ur Leukocyte Esterase NEGATIVE Urine RBC 6-10 H Urine WBC 0-3 Ur Squamous Epith Cells NONE SEEN Urine Bacteria Rare Urine Mucus Few Strands Urine Sperm PRESENT Ur Microscopic Review INDICATED Urine Culture Comments NOT INDICATED Salicylates < 6.0 Urine Opiates Screen POSITIVE H Ur Oxycodone Screen NEGATIVE Urine Methadone Screen NEGATIVE Ur Propoxyphene Screen NEGATIVE Acetaminophen < 10 L Ur Barbiturates Screen NEGATIVE Ur Tricyclics Screen NEGATIVE Ur Phencyclidine Scrn NEGATIVE Ur Amphetamine Screen POSITIVE H U Methamphetamines Scrn POSITIVE H U Benzodiazepines Scrn NEGATIVE Urine Cocaine Screen NEGATIVE U Cannabinoids Screen NEGATIVE Ethyl Alcohol < 5.0 11/30/20 13:35 WBC RBC Hgb Hct MCV MCH MCHC RDW Plt Count MPV Neut # (Auto) Lymph # (Auto) Bennett # (Auto) Eos # (Auto) Baso # (Auto) Absolute Nucleated RBC Nucleated RBC % Sodium Potassium Chloride Carbon Dioxide Anion Gap BUN Creatinine Estimated GFR (MDRD) Glucose Calcium Total Bilirubin AST ALT Alkaline Phosphatase Total Protein Albumin Globulin Albumin/Globulin Ratio Lipase TSH 1.57 Urine Color Urine Clarity Urine pH Ur Specific [place] Urine Protein Urine Glucose (UA) Urine Ketones Urine Occult Blood Urine Nitrite Urine Bilirubin Urine Urobilinogen Ur Leukocyte Esterase Urine RBC Urine WBC Ur Squamous Epith Cells Urine Bacteria Urine Mucus Urine Sperm Ur Microscopic Review Urine Culture Comments Salicylates Urine Opiates Screen Ur Oxycodone Screen Urine Methadone Screen Ur Propoxyphene Screen Acetaminophen Ur Barbiturates Screen Ur Tricyclics Screen Ur Phencyclidine Scrn Ur Amphetamine Screen U Methamphetamines Scrn U Benzodiazepines Scrn Urine Cocaine Screen U Cannabinoids Screen Ethyl Alcohol PD MEDICAL DECISION MAKING - ED course Complexity details: reviewed old records, reviewed results, re-evaluated patient, d/w patient ED course: 35-year-old male is return to the emergency department under a new AMNA by law enforcement for escalating aggressive behaviors at home. His father contacted law enforcement to let them know he was there. Please see yesterday's documentation by myself about his ER visit in which he was seen for aggressive behaviors outside his home and was found to be methamphetamine positive. He had been detained involuntarily by DCR but unfortunately eloped from the emergency department. 1345: Baseline screening labs are pending but will anticipate repeat DCR evaluation. 1730: Please see the extensive social work notes. In short Patient is not able to be legally detained though he may be able to be detained for substance use and injury. However this cannot occur until a bed is available at a referring facility. 1 may not be available until tomorrow. Unfortunately we are not able to keep the patient in the emergency department against his will until a bed is available. 1950: I have been notified by the nursing staff that the patient has eloped from the emergency department. I have also spoken with the DCR Saida on the phone. She reports that at this time she feels the his condition is not so much a mental health concern as it is a substance abuse use issue. Unfortunately he needs secure detox and no beds are available at this time. She has also spent a lengthy amount of time in conversation with local law enforcement to discuss long-term plan of care for this gentleman should he continue to escalate his behaviors when outside of the emergency department. Unfortunately we are not able to legally detain the patient at this time. [facility] office was made aware that he eloped from the emergency department. They will only bring him back to the emergency department if a secure bed becomes available. Departure - Departure Disposition: ED Elope Clinical Impression: Methamphetamine abuse Discharge Date/Time: 11/30/20 20:03
[2020-11-30 13:40] LABS: BILIRUBIN,URINE NEGATIVE (NEGATIVE); GLUCOSE, URINE (UA) NEGATIVE (NEGATIVE); KETONES,URINE (UA) NEGATIVE (NEGATIVE); LEUKOCYTE ESTERASE, URINE NEGATIVE (NEGATIVE); NITRITE,URINE NEGATIVE (NEGATIVE); OCCULT BLOOD,URINE MODERATE (NEGATIVE); PROTEIN,URINE NEGATIVE (NEGATIVE); UROBILINOGEN,URINE 0.2 (NORMAL) E.U./dL (NORMAL)
[2020-11-30 13:42] LABS: CLARITY,URINE HAZY (CLEAR)
[2020-11-30] MEDS ORDERED: OLANZapine 10 MG VIAL IM STA (13:43)
[2020-11-30 13:45] LABS: BASOPHILS # (AUTO) 0.1 10^3/uL (0.0-0.1); BASOPHILS % (AUTO) 0.8 %; EOSINOPHILS # (AUTO) 0.6 10^3/uL (0.0-0.7); EOSINOPHILS % (AUTO) 6.6 %; HCT - HEMATOCRIT 49.4 % (42.0-52.0); HGB - HEMOGLOBIN 16.1 g/dL (14.0-18.0); LYMPHOCYTES # (AUTO) 2.6 10^3/uL (1.5-3.5); LYMPHOCYTES % (AUTO) 29.1 %; MEAN CORPUSCULAR HEMOGLOBIN 30.1 pg (27.0-31.0); MEAN CORPUSCULAR HGB CONC 32.6 g/dL (32.0-36.0); MEAN CORPUSCULAR VOLUME 92.3 fL (80.0-94.0); MEAN PLATELET VOLUME 9.9 fL (7.4-11.4); MONOCYTES # (AUTO) 0.5 10^3/uL (0.0-1.0); MONOCYTES % (AUTO) 5.4 %; NEUTROPHILS # (AUTO) 5.2 10^3/uL (1.5-6.6); PLT - PLATELET COUNT 331 10^3/uL (130-450); RED BLOOD COUNT 5.35 10^6/uL (4.70-6.10); RED CELL DISTRIBUTION WIDTH 12.5 % (12.0-15.0); WHITE BLOOD COUNT 8.9 x10^3/uL (4.8-10.8)
[2020-11-30 13:52] LABS: AMPHETAMINE SCREEN,URINE POSITIVE (NEGATIVE); BARBITURATE SCREEN,UR NEGATIVE (NEGATIVE); BENZODIAZEPINES SCREEN, URINE NEGATIVE (NEGATIVE); COCAINE SCREEN URINE NEGATIVE (NEGATIVE); METHADONE SCREEN, URINE NEGATIVE (NEGATIVE); METHAMPHETAMINES SCREEN, URINE POSITIVE (NEGATIVE); OPIATE SCREEN, URINE POSITIVE (NEGATIVE); OXYCODONE SCREEN, URINE NEGATIVE (NEGATIVE); PROPOXYPHENE SCREEN, URINE NEGATIVE (NEGATIVE); THC CANNABINOID SCREEN, URINE NEGATIVE (NEGATIVE); TRICYCLIC ANTIDEPRESSANT,URINE NEGATIVE (NEGATIVE)
[2020-11-30 14:00] LABS: BACTERIA,URINE Rare /HPF (None Seen); SQUAMOUS EPITHELIAL CELL,UR NONE SEEN (<= Few); WBC,URINE 0-3 /HPF (0-3)
[2020-11-30 14:01] LABS: MUCUS,URINE Few Strands; SPERM,URINE PRESENT
[2020-11-30 14:04] LABS: ACETAMINOPHEN < 10 ug/mL (10-30); ALBUMIN 4.7 g/dL (3.2-5.5); ALBUMIN/GLOBULIN RATIO 1.2 (1.0-2.2); ALKALINE PHOSPHATASE 96 IU/L (42-121); ALT ALANINE AMINOTRANSFERASE 29 IU/L (10-60); AST ASPARTATE AMINOTRANSFERASE 35 IU/L (10-42); BILIRUBIN,TOTAL 0.8 mg/dL (0.2-1.0); BUN - BLOOD UREA NITROGEN 13 mg/dL (6-20); CALCIUM 9.1 mg/dL (8.5-10.3); CARBON DIOXIDE - CO2 28 mmol/L (21-32); CHLORIDE 102 mmol/L (101-111); CREATININE 1.3 mg/dL (0.6-1.2); ETOH - ETHANOL < 5.0 mg/dL; GFR - MDRD 63 (>89); GLUCOSE 88 mg/dL (70-100); LIPASE 25 U/L (22-51); POTASSIUM 3.6 mmol/L (3.5-5.0); SALICYLATE < 6.0 mg/dL; SODIUM 140 mmol/L (135-145); TOTAL PROTEIN 8.6 g/dL (6.7-8.2)
== END 2020-11-30 20:03 | disposition left against medical advice (07) ==
LOC: ED 13:17
DX: F15.10 Other stimulant abuse, uncomplicated (principal); Z53.29 Procedure and treatment not carried out because of patient's decision for other reasons
CPT/HCPCS: 36415; 80053; 80306; 80307; 80320; 80329; 81001; 81003; 83690; 84443; 85025; 87086; 99281; 99283

== ENCOUNTER 2021-05-06 22:13 | Outpatient (CLI) | payer MEDICAID | END 2021-05-06 22:14 | disposition EMS.NT | LOC: EMS 22:13 | DX: R46.89 Other symptoms and signs involving appearance and behavior (principal) ==